=== PATIENT | female | born 1985 | race Caucasian/White ===

== ENCOUNTER 2018-01-19 03:47 | Emergency (ER) | payer OTHER ==
[~2018-01-19] VITALS: Ht 172.7 cm; Wt 129.3 kg
--- NOTE | 2018-01-19 04:59 | ED GI/GU/ABDOMINAL COMPLAINT ---
History of Present Illness General Chief Complaint: Abdominal Pain/Flank Pain Stated Complaint: PT C/O ABD PAIN WHILE SLEEPING "IM FREEKING OUT" Source: patient, old records Exam Limitations: no limitations Vital Signs & Intake/Output Vital Signs & Intake/Output Vital Signs Date Time Temp Pulse Resp B/P B/P Pulse O2 O2 Flow FiO2 Mean Ox Delivery Rate 01/19 0500 100 Room Air 01/19 0403 98.8 120 20 154/105 95 Allergies Coded Allergies: morphine (Mild, "VERY HOT" 01/19/18) Penicillins (UNKNOWN 01/19/18) Reconcile Medications No Known Home Medications Triage Nurses Notes Reviewed? yes LMP (ages 10-50): unknown ? n Is pt currently ? No Onset: Just prior to arrival Duration: hour(s):, constant, continues in ED Timing: recent history Quality/Severity: aching, moderate, severe Location: periumbilical, right lower quadrant Radiation: back Activities at Onset: rest Prior Abdominal Problems: none Past Sexual History: Unobtainable at this time No Modifying Factors: none Associated Symptoms: abdominal pain, nausea/vomiting HPI: 3 days prior to admission patient reports nausea vomiting anorexia. Less than 1 day prior to admission her symptoms improved she was able to eat and drink. Prior to admission she awoke with severe periumbilical aching radiating to her back associated with nausea anxiety. She denies fever chills diarrhea chest pain cough shortness breath headache dysuria rash bleeding. Past History Travel History Traveled to [place] past 21 day No Medical History Any Pertinent Medical History? see below for history Neurological: NONE EENT: NONE Cardiovascular: NONE Respiratory: NONE Gastrointestinal: NONE Hepatic: NONE Renal: NONE Musculoskeletal: HERNIATED DISC Psychiatric: NONE Endocrine: NONE Blood Disorders: NONE Cancer(s): NONE FIELD MECHANIC/Reproductive: NONE Surgical History Surgical History: non-contributory Psychosocial History What is your primary language German Tobacco Use: Quit >30 days ago Family History Hx Contributory? No Review of Systems Review of Systems Constitutional: Reports: no symptoms. EENTM: Reports: no symptoms. Respiratory: Reports: no symptoms. Cardiovascular: Reports: no symptoms. GI: Reports: see HPI, abdominal pain, nausea. Genitourinary: Reports: no symptoms. Musculoskeletal: Reports: no symptoms. Skin: Reports: no symptoms. Neurological/Psychological: Reports: no symptoms. Hematologic/Endocrine: Reports: no symptoms. Immunologic/Allergic: Reports: no symptoms. All Other Systems: Reviewed and Negative Physical Exam Physical Exam General Appearance: well developed/nourished, alert, awake, anxious, moderate distress, obese Head: atraumatic, normal appearance Eyes: Bilateral: normal appearance, PERRL, EOMI, normal inspection. Ears, Nose, Throat, Mouth: hearing grossly normal, moist mucous membrane Neck: normal inspection, supple, full range of motion, normal alignment Respiratory: normal breath sounds, chest non-tender, no respiratory distress, quiet respiration, lungs clear Cardiovascular: regular rate/rhythm, normal peripheral pulses, norml femoral pulses equa Peripheral Pulses: 4+ carotid (R), 4+ carotid (L) Gastrointestinal: normal bowel sounds, soft, non-tender, no organomegaly Back: normal inspection, decreased range of motion, no vertebral tenderness Extremities: normal range of motion Neurologic/Psych: no motor/sensory deficits, awake, alert, oriented x 3, normal gait, returned item clerk II-XII nml as tested Skin: rash Core Measures ACS in differential dx? No Sepsis Present: No Sepsis Focused Exam Completed? No Progress Differential Diagnosis: appendicitis, biliary colic, gastritis, kidney stone, pancreatitis, PUD/GERD, UTI/pyelo Plan of Care: Orders Procedure Date/time Status LIPASE 01/19 445 Complete COMPREHENSIVE METABOLIC PANEL 01/19 445 Complete CBC WITHOUT DIFFERENTIAL 01/19 445 Complete URINE 01/19 431 Complete URINALYSIS 01/19 431 Complete Current Medications Sig/Madelin Start time Last Medication Dose Stop Time Status Admin Ampicillin Sodium/ 3,000 MG ONCE ONE 01/19 0715 UNVr Sulbactam Sodium 01/19 0744 (Unasyn) Sodium Chloride 100 ML (Normal Saline 0.9%) Laboratory Tests 01/19/18 0507: Anion Gap 12, Estimated GFR > 60, BUN/Creatinine Ratio 22.9, Glucose 124 H, Calcium 9.8, Total Bilirubin 0.3, AST 25, ALT 31, Alkaline Phosphatase 65, Total Protein 7.3, Albumin 4.4, Globulin 2.9, Albumin/Globulin Ratio 1.5, Lipase 51, CBC w Diff NO MAN DIFF REQ, RBC 4.33, MCV 89.5, MCH 30.5, MCHC 34.0, RDW 12.8, MPV 7.4, Gran % 81.1 H, Lymphocytes % 9.6 L, Monocytes % 7.5, Eosinophils % 1.5, Basophils % 0.3, Absolute Granulocytes 6.7 H, Absolute Lymphocytes 0.8 L, Absolute Monocytes 0.6, Absolute Eosinophils 0.1, Absolute Basophils 0 01/19/18 0436: Urine Color YEL, Urine Clarity CLEAR, Urine pH 6.0, Ur Specific [place] 1.010, Urine Protein NEG, Urine Ketones NEG, Urine Nitrite NEG, Urine Bilirubin NEG, Urine Urobilinogen 0.2, Ur Leukocyte Esterase NEG, Ur Microscopic EXAM NOT REQUIRED, Urine Hemoglobin NEG, Urine Glucose NEG, Urine Test NEGATIVE Diagnostic Imaging: Viewed by Me: CT Scan. Discussed w/RAD: CT Scan. Initial ED EKG: none Departure Departure Time of Disposition: 716 Disposition: HOME OR SELF CARE Condition: Stable Clinical Impression Primary Impression: Diverticulitis Referrals: Ethel YOU,Silvino Johnson (PCP/Family) Departure Forms: Customer Survey General Discharge Information Prescriptions: Current Visit Scripts Amoxicillin/Potassium Clav (Amox-Clav 500-125 MG Tablet) 1 TAB PO TID #20 TAB Ondansetron (Zofran Odt) 1 TAB SL TID PRN nausea #10 TAB Hyoscyamine Sulfate (Levsin-Sl) 1-2 TAB SL Q4P PRN abdominal pain #30 TAB
[2018-01-19 05:15] LABS: ABSOLUTE BASOPHIL COUNT 0 /CUMM (0.0-0.2); ABSOLUTE EOSINOPHIL COUNT 0.1 /CUMM (0.0-0.7); ABSOLUTE GRANULOCYTE CT 6.7 /CUMM (1.4-6.5); ABSOLUTE LYMPH COUNT 0.8 /CUMM (1.2-3.4); ABSOLUTE MONOCYTE COUNT 0.6 /CUMM (0.10-0.60); BASOPHIL % 0.3 % (0.0-2.0); EOSINOPHIL % 1.5 % (0-5); GRANULOCYTE % 81.1 % (42.2-75.2); HEMATOCRIT 38.7 % (37-47); MEAN CORPUSCULAR HGB 30.5 PG (27.0-31.0); MEAN CORPUSCULAR VOLUME 89.5 FL (81.0-99.0); MEAN PLATELET VOLUME 7.4 FL (7.4-10.4); PLATELET COUNT 296 /CUMM (130-400); RBC DISTRIBUTION WIDTH 12.8 % (11.5-14.5); RED BLOOD CELL CT 4.33 /CUMM (4.20-5.40); WHITE BLOOD CELL COUNT 8.2 /CUMM (4.8-10.8)
--- NOTE | 2018-01-19 06:47 | CT SCAN REPORT ---
EXAMINATION: CT ABDOMEN AND PELVIS WITH CONTRAST CLINICAL INFORMATION: Right lower quadrant pain. Suprapubic pain. COMPARISON: None. TECHNIQUE: Contiguous axial thin section helical images of the abdomen and pelvis were performed following the administration of 95 mL of intravenous Optiray 320. The data set was reformatted in the coronal and sagittal planes and reviewed on an independent workstation. DLP: 1336 mGy-cm. FINDINGS: The visualized lung bases are clear. The visualized portions of the heart are unremarkable. The liver is of normal size and attenuation without focal lesions nor intrahepatic biliary ductal dilation. A normal gallbladder is identified. There is no wall thickening or discernible pericholecystic fluid. The spleen, pancreas, adrenal glands are unremarkable. Both kidneys are of normal size and attenuation without hydronephrosis or nephrolithiasis. Following the administration of IV contrast, prompt symmetric nephrograms are displayed. There is no abdominal free fluid. There is neither mesenteric nor retroperitoneal lymphadenopathy. There is sigmoid diverticulosis with sigmoid wall thickening and adjacent fat stranding; otherwise, unremarkable unopacified loops of small and large bowel are identified. Specifically, a normal appendix is identified. An IUD is in appropriate position. There is an approximately 2.2 cm right ovarian cyst. There is no pelvic free fluid. The urinary bladder is unremarkable. There is neither pelvic nor inguinal lymphadenopathy. Bone windows: Neither sclerotic nor lytic bone lesions are identified. IMPRESSION: Sigmoid diverticulosis and diverticulitis without drainable fluid collections. 2.2 cm right ovarian cyst.
[2018-01-19] MEDS ORDERED: LEVSIN-SL0.125 MG SL (07:20)
[2018-01-19] MEDS ORDERED: ZOFRAN ODT4 M1 SL (07:20)
[2018-01-19] MEDS ORDERED: AMOX-CLAV 500-1 EACH PO (07:20)
[2018-01-19] MEDS ORDERED: FLAGYL500 MG PO (07:37)
[2018-01-19] MEDS ORDERED: CIPRO500 M1 PO (07:37)
[2018-01-19 10:15] VITALS: BP 130/87
== END 2018-01-19 10:16 ==
LOC: ERH 03:47
PROVIDERS: Emergency Medicine
DX: K57.92 Diverticulitis of intestine, part unspecified, without perforation or abscess without bleeding (principal); R10.33 Periumbilical pain; R11.2 Nausea with vomiting, unspecified
CPT/HCPCS: 74177; 81003; 81025; 96361; 96365; 96375; J0744; J1885; J2405; J7060